=== PATIENT | female | born 1980 | race Caucasian/White ===

== ENCOUNTER 2018-09-25 08:25 | Inpatient (IN) | payer BC, OTHER ==
[~2018-09-25] VITALS: Ht 154.9 cm; Wt 61.8 kg
[2018-09-25] MEDS ORDERED: OXYTOCIN 30U/ 0.9% NaCL 500ML 500 ML IV ONE (22:03)
[2018-09-25] MEDS ORDERED: LIDOCAINE 1%, 20ML ONE (22:07)
[2018-09-25] MEDS ORDERED: MISOPROSTOL 200 MCG TABLET ONE (22:07)
[2018-09-25] MEDS ORDERED: OXYTOCIN 30U/ 0.9% NaCL 500ML 500 ML ONE (22:07)
[2018-09-25] MEDS ORDERED: MISOPROSTOL 25 MCG TABLET ONE (22:08)
[2018-09-25 22:30] VITALS: BP 103/72
[2018-09-25] MEDS ORDERED: FENTANYL PF 100 MCG/2ML IVPush PRN (22:30)
[2018-09-25] MEDS ORDERED: ALUMINUM/MAG/SIMETHICONE 30 ML UDC PO PRN (22:30)
[2018-09-25] MEDS ORDERED: METOCLOPRAMIDE 5 MG/ML, 2ML IVPush PRN (22:30)
[2018-09-25] MEDS ORDERED: TERBUTALINE 1 MG/ML, 1ML IVPush PRN ×2 (22:30)
[2018-09-25] MEDS ORDERED: ONDANSETRON 2MG/ML, 2ML IVPush PRN (22:30)
[2018-09-25] MEDS ORDERED: PLEASE ENTER ALLERGIES MC SCH ×2 (22:30→23:00)
[2018-09-25] MEDS ORDERED: SODIUM CHLORIDE FLUSH 10ML SYR IVF PRN (22:30)
[2018-09-25] MEDS ORDERED: PLEASE ENTER HEIGHT AND WEIGHT MC SCH ×2 (22:30→23:00)
[2018-09-25] MEDS ORDERED: MISOPROSTOL 25 MCG TABLET VG PRN (22:30)
[2018-09-25] MEDS ORDERED: CALCIUM CARBONATE 500 MG TAB.CHEW PO PRN (22:30)
[2018-09-25] MEDS ORDERED: FENTANYL PF 100 MCG/2ML IV PRN (22:30)
[2018-09-25] MEDS ORDERED: SODIUM CITRATE/CITRIC ACID 15 ML UDC PO PRN (22:30)
[2018-09-25] MEDS: LACTATED RINGERS 1,000 ML IV SCH (22:40)
[2018-09-25 22:49] LABS: BASOPHILS # (AUTO) 0.03 x10^3/uL (0-0.1); BASOPHILS % (AUTO) 1 % (0-1); EOSINOPHILS # (AUTO) 0.04 x10^3/uL (0-0.4); EOSINOPHILS % (AUTO) 1 % (1-7); LYMPHOCYTES # (AUTO) 1.38 x10^3/uL (1-3.4); LYMPHOCYTES % (AUTO) 24 % (22-44); MD NO; MEAN CORPUSCULAR HGB CONC 33.3 g/dL (32.4-35.8); MEAN CORPUSCULAR VOLUME 96.2 fL (80-100); MEAN PLATELET VOLUME 8.1 fL (7.4-10.4); MONOCYTES # (AUTO) 0.58 x10^3/uL (0.2-0.8); MONOCYTES % (AUTO) 10 % (2-9); NEUTROPHILS # (AUTO) 3.85 x10^3/uL (1.8-6.8); NEUTROPHILS % (AUTO) 65 % (42-75); PLATELET COUNT 208 x10^3/uL (130-400); RED BLOOD COUNT 3.84 x10^6/uL (3.82-5.3); RED CELL DISTRIBUTION WIDTH 12.8 % (9.6-15.2)
[2018-09-25] MEDS ORDERED: PREN1TAB60 PO (23:36)
[2018-09-26] MEDS ORDERED: OXYTOCIN 30U/ 0.9% NaCL 500ML 0 ML ONE (03:04)
[2018-09-26] MEDS: LACTATED RINGERS 1,000 ML IV SCH ×3 (03:44→13:27)
[2018-09-26] MEDS ORDERED: OXYTOCIN 30U/ 0.9% NaCL 500ML 500 ML IV PRN (05:00)
[2018-09-26] MEDS ORDERED: FENTANYL PF 100 MCG/2ML ONE ×2 (06:31→07:56)
[2018-09-26] MEDS ORDERED: FENTANYL/BUPIV./NS/PF 250 ML EPIDCONT SCH ×2 (07:53→13:43)
[2018-09-26] MEDS ORDERED: BUPIVACAINE 0.25% ONE (07:56)
[2018-09-26] MEDS ORDERED: FENTANYL PF 500 MCG, BUPIVACAINE/PF 0.5%, 30ML 62.5 ML in SODIUM CHLORIDE 0.9% 177.5 ML EPIDCONT SCH (08:00)
[2018-09-26] MEDS: D5%-LACTATED RINGERS 1,000 ML IV SCH ×3 (09:05→19:22)
[2018-09-26] MEDS ORDERED: LACTATED RINGERS 1,000 ML IV SCH (13:43)
[2018-09-26] MEDS ORDERED: EPHEDRINE 50 MG/ML, 1ML IVPush PRN (14:00)
[2018-09-26] MEDS ORDERED: ONDANSETRON 2MG/ML, 2ML IVPush PRN (14:00)
[2018-09-26] MEDS ORDERED: LACTATED RINGERS 1,000 ML IVBOLUS PRN (14:00)
[2018-09-26 19:13] VITALS: BP 119/68
[2018-09-27] MEDS ORDERED: MAGNESIUM HYDROXIDE 8%, 30ML UDC PO PRN (03:30)
[2018-09-27] MEDS ORDERED: OXYcodone IR 5MG TABLET PO PRN (03:30)
[2018-09-27] MEDS ORDERED: ONDANSETRON 2MG/ML, 2ML IV PRN (03:30)
[2018-09-27] MEDS ORDERED: MISOPROSTOL 200 MCG TABLET PR PRN (03:30)
[2018-09-27] MEDS ORDERED: RHOGAM FROM BLOOD BANK 1 NOTE EA IM/IV ONE (03:30)
[2018-09-27] MEDS ORDERED: CALCIUM CARBONATE 500 MG TAB.CHEW PO PRN (03:30)
[2018-09-27] MEDS ORDERED: OXYcodone/APAP 5/325MG TABLET PO PRN (03:30)
[2018-09-27] MEDS ORDERED: DIPH,PERTUSS(ACELL),TET VAC/PF NC IM-VACC PRN (03:30)
[2018-09-27] MEDS ORDERED: MEASLES,MUMPS&RUBELLA VACC/PF 0.5 ML SQ PRN (03:30)
[2018-09-27] MEDS ORDERED: OXYTOCIN 30U/ 0.9% NaCL 500ML 500 ML ONE (04:22)
[2018-09-27] MEDS: OXYTOCIN 30U/ 0.9% NaCL 500ML 500 ML IV SCH ×3 (04:23→23:25)
[2018-09-27 05:30] VITALS: BP 116/70
[2018-09-27] MEDS: PRENATAL VIT/IRON/FA 1 EACH TABLET PO SCH (07:37)
[2018-09-27] MEDS: DOCUSATE 100 MG CAPSULE PO PRN ×2 (07:37→20:39)
[2018-09-27] MEDS: IBUPROFEN 600 MG TABLET PO PRN ×2 (07:37→20:39)
[2018-09-27 07:46] VITALS: BP 105/71
[2018-09-27 12:00] LABS: MEAN CORPUSCULAR HEMOGLOBIN 32.4 pg (27.0-34.8); MEAN CORPUSCULAR HGB CONC 33.6 g/dL (32.4-35.8); MEAN CORPUSCULAR VOLUME 96.4 fL (80-100); MEAN PLATELET VOLUME 8.1 fL (7.4-10.4); PLATELET COUNT 165 x10^3/uL (130-400); RED BLOOD COUNT 3.22 x10^6/uL (3.82-5.3); RED CELL DISTRIBUTION WIDTH 12.7 % (9.6-15.2)
[2018-09-27 12:21] LABS: MD YES
[2018-09-27 12:23] LABS: <PLATELET ESTIMATE> ADEQUATE; <PLT MORPHOLOGY> NORMAL PLT MORPH; <RBC MORPHOLOGY> NORMAL; BAND#(MANUAL) 1.69 x10^3/uL; BANDS%(MANUAL) 11 % (0-7); LYMPH#(MANUAL) 0.77 x10^3/uL (1-3.4); LYMPHS% (MANUAL) 5 % (22-44); MONOS#(MANUAL) 0.62 x10^3/uL (0.3-2.7); MONOS% (MANUAL) 4 % (2-9); SEG#(MANUAL) 12.32 x10^3/uL (1.8-6.8); SEGS% (MANUAL) 80 % (42-75)
[2018-09-27 12:30] VITALS: BP 106/70
[2018-09-27 19:15] VITALS: BP 92/60
[2018-09-28 00:10] VITALS: BP 112/71
[2018-09-28 07:15] VITALS: BP 118/80
[2018-09-28] MEDS: PRENATAL VIT/IRON/FA 1 EACH TABLET PO SCH (09:35)
[2018-09-28] MEDS: DOCUSATE 100 MG CAPSULE PO PRN (09:35)
[2018-09-28] MEDS ORDERED: IBUP-1222 PO (10:48)
[2018-09-28] MEDS: IBUPROFEN 600 MG TABLET PO PRN (14:38)
== END 2018-09-28 17:28 | disposition home or self-care (01) | DRG 807 ==
LOC: LDIP 21:51 → 2NW 09-27 05:07
PROVIDERS: ADMIT Obstetrics & Gynecology Gynecology; ATTEND Obstetrics & Gynecology Gynecology
PROC: 10E0XZZ Delivery of Products of Conception, External Approach (ICD-10-PCS; principal; 2018-09-27)
PROC: 0HQ9XZZ Repair Perineum Skin, External Approach (ICD-10-PCS; 2018-09-27)
PROC: 3E0R3BZ Introduction of Anesthetic Agent into Spinal Canal, Percutaneous Approach (ICD-10-PCS; 2018-09-27)
PROC: 00HU33Z Insertion of Infusion Device into Spinal Canal, Percutaneous Approach (ICD-10-PCS; 2018-09-27)
PROC: 3E0P7VZ Introduction of Hormone into Female Reproductive, Via Natural or Artificial Opening (ICD-10-PCS; 2018-09-27)
PROC: 10907ZC Drainage of Amniotic Fluid, Therapeutic from Products of Conception, Via Natural or Artificial Opening (ICD-10-PCS; 2018-09-27)
DX: O48.0 Post-term pregnancy (principal); Z37.0 Single live birth; O69.81X0 Labor and delivery complicated by cord around neck, without compression, not applicable or unspecified; O66.0 Obstructed labor due to shoulder dystocia; Z3A.40 40 weeks gestation of pregnancy; Z80.3 Family history of malignant neoplasm of breast; Z80.49 Family history of malignant neoplasm of other genital organs; Z83.3 Family history of diabetes mellitus; O70.0 First degree perineal laceration during delivery
CPT/HCPCS: 36415; J7121; S0020; 82803; 85025; 86850; 86900; G0378; J3010; J3490; J2590; J7050; J7120